=== PATIENT | female | born 1995 | race Caucasian/White ===

== ENCOUNTER 2018-12-24 17:33 | Outpatient (CLI) | payer OTHER ==
[~2018-12-24] VITALS: Ht 165.1 cm; Wt 78.6 kg
--- NOTE | 2018-12-24 17:25 | NUR ---
Patient ambulatory onto unit with at side with report of "stabbing back pain in my right side". Patient reports good movement, denies vaginal bleeding, leaking of fluid, or contractions. Denies any UTI symptoms or other complaints. EFMs on, VS taken. SVE /-2, unchanged from office exam. Assessment completed. Will notify for further orders.
[2018-12-24 17:40] VITALS: BP 125/89; PULSE 115; TEMP 99.3
[2018-12-24] MEDS ORDERED: PRENATAL VITAMI1 TA3 PO (17:40)
[2018-12-24] MEDS ORDERED: SINGULAIR 110 MG/TAB PO (17:40)
[2018-12-24 18:15] VITALS: BP 123/75; PULSE 98
--- NOTE | 2018-12-24 18:25 | NUR ---
Plan of care discussed with patient and . Questions answered. Patient ambulatory off of unit at this time with return precautions.
== END 2018-12-24 18:25 | disposition home or self-care (01) ==
LOC: LDRO 17:33 → LDR 18:19 → LDRO 18:20 → LDR 18:24
DX: O26.893 Other specified pregnancy related conditions, third trimester (principal); Z3A.38 38 weeks gestation of pregnancy; M54.9 Dorsalgia, unspecified
CPT/HCPCS: OP

== ENCOUNTER 2018-12-29 06:59 | Inpatient (IN) | payer OTHER ==
[2018-12-29] VITALS (36 sets, daily range): BP systolic 98–142; BP diastolic 55–91; PULSE 78–150; TEMP 97.6–98.9
[~2018-12-29] VITALS: Ht 165.1 cm; Wt 78.0 kg
[~2018-12-29 06:59] MED LIST: PRENATAL VITAMI1 TA3 PO; SINGULAIR 110 MG/TAB PO
--- NOTE | 2018-12-29 07:10 | NUR ---
Patient ambulatory to LR5, changed into gown, FHR/TOCO monitors placed and explained. Patient states she has been feeling some contractions, denies leaking of fluid or vaginal bleeding. Plan of care discussed. 0730: IV started in right upper arm per Kevin RN, blood obtained and to lab, and LR infusing. Assessment completed and consents gone over/ packet given. 0810: Dr. Mena at bedside and assessing patient/FHR strip. 0811: SVE-4/80/-1 and AROM with clear fluid noted. Plan of care discussed. 0850: Patient getting more uncomfortable and on birthing ball, FHR difficult to trace and this RN adjusting FHR monitor. 0928: Patient requests epidural and Jeannie LANCASTER called and updated. 0935: FHR monitor tracing maternal heart rate and patient off monitor to void. 0945: Patient sitting on edge of bed and Jeannie LANCASTER at bedside for placement of epidural. Patient becomes naueseated and vomitting. 0957: Test dose given and patient tolerates well Difficulty tracing FHR due to maternal position. 1000: Patient repositioned wedged left. 1020: FHR tracing recurrent variable/late declerations and patient repositioned. 1018: Blood pressure-95/52 and patient states feeling light headed. 1020: Ephedrine 10mg IV given and patient tolerates well. 1022: Recheck Blood pressure-109/66 and patient states feeling better. 1025: Carrillo placed and patient tolerates well. SVE-6/90/-1 and patient left lateral with peanut ball in place. 1125: Dr. Mnea at bedside and evaluating FHR strip. Orders to continue to increase pitcocin. SVE-//-1.
[2018-12-29 08:22] LABS: BASO % 0.3 % (0.0-2.0); EOS # 0.1 (0.0-0.7); EOS % 0.7 % (0-4.0); GRAN # 6.5 (1.4-6.5); GRAN % 74.3 % (42.2-75.2); HEMOGLOBIN 12.5 g/dl (12.5-16.0); LYMPH # 1.5 (1.2-3.4); LYMPH % 16.7 % (20.0-51.0); MEAN CELL VOLUME 89 fl (80.0-100.0); MEAN CORPUSCULAR HEMOGLOBIN 30 pg (27.0-31.0); MEAN CORPUSCULAR HGB CONC 34 g/dl (33.0-37.0); MEAN PLATELET VOLUME 12.5 fl (7.4-10.4); MONO # 0.6 (0.1-0.6); MONO % 7.1 % (1.7-9.3); PLATELET COUNT 142 K/mm3 (130-400); RED BLOOD COUNT 4.17 M/mm3 (4.10-5.30); REDCELL DISTRIBUTION WIDTH-CV 12.9 % (11.5-14.5)
--- NOTE | 2018-12-29 13:15 | NUR ---
Patient states she is having a lot of pressure. 1319: SVE-10/100/+1 1320: Carrillo catheter removed and patient tolerates well. Patient having the urge to push with each contraction. 1330: Patient begins pushing with contractions as needed. FHR tracing recurrent variable decelerations. 1340: Patient pulling legs back and pushing with each contraction with this RN assisting. 1350: Dr. Mena at bedside to assess patient and FHR strip. Patiet pushing with Dr. Mena and physician notes that is occiput posterior. Orders to continues pushing with this RN. FHR continues to have recurrent variable decelerations. 1410: Patient continues to push with Dr. Mena and physician discusses the possible need for vacuum assist delivery due to FHR increasing baseline. Patient agrees and is okay with plan if needed. FHR baseline continues to trace recurrent variable decelerations and returning to baseline of 175bpm. Bed taken apart and feet in [facility] and Dr. Mena discusses the need for vacuum at this time and patient agrees. 1434: Vacuum applied and traction applied with all three pushes during contraction. 1435: Pop off of vacuum at this time. 1435: Vacuum reapplied to head of infant and patient begins to push and traction with each push x3. 1437: Pop off of vacuum at this time. Patient pushes without vacuum applied. 1440: Dr. Mena cuts a RLE at this time and Dr. Mena updated that there has been a total of two popoffs. 1441: Vacuum applied and traction with each push x3. 1442: Pop off at this time. FHR continues to trace recurrent variable decelerations and increasing to 190-200bpm. Patient continues to push without vacuum applied. 1448: Delivery of head followed by body, infant to patients abdomen, Dr. Mena clamps and cuts cord of . taken to warmer and Sujatha Tirado RN, Rita RN, and Jeannie LANCASTER assume care of infant. Cord gases obtained and to Respiratory therapy. Cord blood obtained. 1453: Spontaneous delivery of placenta and pitocin bolus started per protocol. Dr. Mena repairs 2nd degree RLE laceration. Fundal massage done/bleeding WNL/firm Patient repositioned and ice pack to perineum. Plan of care discussed.
--- NOTE | 2018-12-29 17:00 | NUR ---
Patient sitting on edge of bed and epidural catheter removed at this time and patient tolerates well. Patient ambulates to bathroom and unable to void at this time, pericare done and new gown/pad/icepack/underwear on. Patient updated on plan of care and patient to nursery to see baby.
[2018-12-30 01:27] VITALS: BP 118/76; PULSE 90; TEMP 98
[2018-12-30 05:30] VITALS: BP 112/65; PULSE 89; TEMP 98.3
[2018-12-30 08:00] VITALS: BP 103/66; PULSE 105; TEMP 98.5
--- NOTE | 2018-12-30 09:52 | NUR ---
Initial visit; Parents thanked Cotton Jammer for offering congratulations and God's blessings for the of their son. Cotton Jammer thanked family for choosing [facility].
[2018-12-30] MEDS ORDERED: MOTRIN 800800 MG/TAB PO (11:38)
[2018-12-30 12:17] VITALS: BP 124/80; PULSE 104; TEMP 99
[2018-12-30 16:17] VITALS: BP 124/65; PULSE 76; TEMP 97.8
[2018-12-30 20:33] VITALS: BP 117/69; PULSE 93; TEMP 98.8
[2018-12-31 07:55] VITALS: BP 115/69; PULSE 84; TEMP 98.6
== END 2018-12-31 11:10 | disposition home or self-care (01) | DRG 807 ==
LOC: LDR 06:59 → OB 06:59
PROVIDERS: ADMIT Obstetrics & Gynecology
PROC: 10D07Z6 Extraction of Products of Conception, Vacuum, Via Natural or Artificial Opening (ICD-10-PCS; principal; 2018-12-29)
PROC: 0W8NXZZ Division of Female Perineum, External Approach (ICD-10-PCS; 2018-12-29)
PROC: 10907ZC Drainage of Amniotic Fluid, Therapeutic from Products of Conception, Via Natural or Artificial Opening (ICD-10-PCS; 2018-12-29)
DX: O99.344 Other mental disorders complicating childbirth (principal); Z37.0 Single live birth; Z3A.39 39 weeks gestation of pregnancy; F41.9 Anxiety disorder, unspecified; J45.909 Unspecified asthma, uncomplicated; O99.52 Diseases of the respiratory system complicating childbirth
CPT/HCPCS: J1200; J2590; J7120

== ENCOUNTER → 2019-01-17 | Outpatient (CLI) | payer OTHER ==
[~2019-01-17] MED LIST changes: +MOTRIN 800800 MG/TAB PO
--- NOTE | 2019-01-17 11:55 | NUR ---
Pt, Chika Salazar into walk-in clinic with 20 day old Josué for evaluation. Josué was born on [birth year] via vac. assisted vaginal delivery with a weight of 8#10 oz. Chika states Josué is strictly breast feeding and nurses 8 times per day, is having 6+ weight diapers per day, and 4+ yellow/seedy stools per day. Chika presents to clinic with concerns regarding occasional pain with latching and itching of the breasts during and after feedings. Today, Josué's prefeed weight was noted as 9# 1.8 oz (4134 gm). While in clinic, Josué nursed bilaterally with a gain of 4.85 oz (136 gm). LC assisted Chika with improving positioning and obtaining a deeper latch to decrease pain. LC noted possible tongue tie that could be causing some of the nipple pain; however, Josué was able to maintain a strong latch for 20+ min and did well transferring milk. LC advised Josué to discuss the tongue tie with band director to see if correction would be of benefit. LC did not note any signs of thrush that could possibly be causing the itching of the breasts. LC educated Chika of other s/sx of thrush to look out for. Also discussed trying washable breast pads in place of disposable pads and air drying nipples after feeding. Questions answered regarding pumping and begining to introduce bottle. POC: Continue to feed ad ted, offering both breasts per feeding, keeping good support of breast and baby. Start pumping and introducing bottle of 3-4 oz EBM a few times a week to prepare for returning to work. Discuss tongue with band director at one month appointment. Continue to watch for s/ sx of thrush. Return to clinic with further concerns as desired. Questions invited and answered. Understanding verbalized.
== END ==
LOC: LAC 10:21
DX: Z39.1 Encounter for care and examination of lactating mother (principal)

== ENCOUNTER → 2019-01-24 | Outpatient (CLI) | payer OTHER ==
--- NOTE | 2019-01-24 10:29 | NUR ---
Chika Salazar into walk in clinic with 3.5 week old Josué for weight check and to discuss on-going issues with breast and nipple pain and itching. Josué was born on [birth year] with a weight of 8#10 oz. Last week in clinic, Josué's prefeed weight was noted at 9#1.8 oz and his intake in clinic last week was 4.85 oz (136 gm), Today's Josué's prefeed weight was noted as 9 # 10.4 oz (4376 gm). While in clinic, Josué nursed bilaterally with a total gain of 4.2 oz. Chika states she continues to have pain with latch and shooting pain up her breasts between feedings. Chika states she is also experiencing itching of the breasts and nipples and states the itching feels internal. No sores or abnormalities of the nipple noted. LC notes infant does have a tongue tie that could be one explaination for niple pain with latch. No white patches noted in infants tongue or mouth. Written and verbal education provided on thrush and nipple pain. POC: Follow up with Dr. Mena regarding internal itching and nipple/breast pain to r/o thrush. Continue to feed ad ted. Watch for further s/sx of thrush. Return to clinic with further concerns.
== END ==
LOC: LAC 09:59
DX: Z39.1 Encounter for care and examination of lactating mother (principal); Z71.89 Other specified counseling

== ENCOUNTER → 2019-02-28 | Outpatient (CLI) | payer OTHER ==
--- NOTE | 2019-02-28 13:00 | NUR ---
Pt, Chika Marie, presents to walk-in clinic with 2 month old baby boy, Josué Salazar because of ongoing nipple pain. Josué was born on [birth year] and weighed 8#10oz (3912 oz). They were at clinic on 01/24/19 and Josué weighed 9#10.4oz (4376 gms). Today his weight is 11#8.7oz. for a gain of about one pound in the last month. LC notes Josué has a sublingual tongue tie, pt has elected not to have it evaluated by dentist at this time. Josué breastfeeds 6 times daily, usually only on one side, has qs voids and stools. Pt reports she has had treatment for thrush but continues to have breast and nipple pain after feedings. Discussed s/sx of Raynaud's Phenomenon and management of the sx with heat after . After on the left side Josué has a gain of 3.8oz. He is placed to the right breast and has an additional gain of 1.7oz, for a total of 5.5oz gain. Pt advised to start offering both breasts at each feeding. POC: Offer both breasts each feeding. Follow managment instructions for Raynaud's Phenomenon. F/U: Pt returns to work next week, will have well baby checks as scheduled with Dr. Tripathi, and contact this LC by phone or email as needed with breast pain. Questions invited and answered.
== END ==
LOC: LDRO 11:52
DX: Z39.1 Encounter for care and examination of lactating mother (principal)

== ENCOUNTER → 2019-07-05 | Outpatient (CLI) | payer OTHER | LOC: MC.RAD 11:09 | DX: Z39.1 Encounter for care and examination of lactating mother (principal); N64.52 Nipple discharge; N64.59 Other signs and symptoms in breast ==

== ENCOUNTER 2020-10-08 08:53 | Outpatient (CLI) | payer OTHER ==
[~2020-10-08] VITALS: Ht 165.1 cm; Wt 75.5 kg
--- NOTE | 2020-10-08 09:05 | NUR ---
904- Pt arrives on unit and is oriented to room. Provided a clean gown to put on. 908- FHR monitor and TOCO connected to pt. VS assessed. Pt denies LOF, VB, or feeling contractions. Consent explained and signed. Assessment completed. 954- IV started in and saline locked per protocol.
[2020-10-08 09:30] VITALS: BP 119/78; PULSE 90; TEMP 98.1
[2020-10-08] MEDS ORDERED: PROAIR HFA0.09 MG/AC IH (09:34)
[2020-10-08 10:00] VITALS: PULSE 94
--- NOTE | 2020-10-08 10:00 | NUR ---
1000- Dr. Mena on unit. In to see pt. Reviews care plan with pt. Reviews FHR monitor and gives order to give 0.[address] Tabares to room to assist Dr. Mena with ECV. 1005- Bedside sono per Dr. Mena. EFM off. 1006- Dr. Mena and Dr. Tabares begin ECV. 1008- Dr. Mena places sono on abdomen to check progress of ECV. Begins further external maneuvers. 1010- RN places EFM on abdomen to check FHR. Dr. Mena confirms vertex presentation accomplished. Pt remains on EFM per protocol. 1033- Dr. Mena at pt bedside. Performs bedside sono prior to exiting unit. Confirms vertex presentation. Reviews EFM and gives this RN orders to give water and continue to monitor for 1 hour per protocol.
[2020-10-08 10:30] VITALS: BP 131/84; PULSE 99
[2020-10-08 10:45] VITALS: PULSE 101
[2020-10-08 11:00] VITALS: PULSE 108
[2020-10-08 11:12] VITALS: PULSE 110
--- NOTE | 2020-10-08 11:12 | NUR ---
1112- Pt disconnected from FHR monitor and TOCO. Given discharge instructions. Questions answered. Pt verbalizes understanding. 1120- Pt ambulatory off unit with spouse.
== END 2020-10-08 11:20 | disposition home or self-care (01) ==
LOC: LDRO 08:53
DX: O32.1XX0 Maternal care for breech presentation, not applicable or unspecified (principal); Z3A.37 37 weeks gestation of pregnancy
CPT/HCPCS: J3105

== ENCOUNTER 2020-10-17 06:25 | Inpatient (IN) | payer OTHER ==
[2020-10-17] VITALS (35 sets, daily range): BP systolic 108–137; BP diastolic 52–93; PULSE 59–137; TEMP 97.6–98.3
[~2020-10-17] VITALS: Ht 165.1 cm; Wt 75.0 kg
[~2020-10-17 06:25] MED LIST changes: +PROAIR HFA0.09 MG/AC IH
--- NOTE | 2020-10-17 06:40 | NUR ---
Patient ambulates to LR6 with spouse, changed into gown, FHR/TOCO monitors placed and explained. Patient here for scheduled induction. Patient denies any regular contractions/leaking of fluid/vaginal bleeding/decreased movement. Plan of care discussed and questions answered. 0700: IV started in left wrist, blood obtained and to lab, LR infusing. Assessment completed, consents discussed and signed, packet given. 0717: Pitocin induction discussed and patient agrees with plan. Pitocin started at 2mU/hr at this time per protocol. 0745: Dr. Mena at bedside and assessing patient and FHR strip. Plan of care discussed. 0747: SVE done by physician-/-2 and AROM at this time with clear fluid noted. Dr. Mena orders that patient can get epidural when she wants and to continue to increase pitocin.
[2020-10-17] MEDS ORDERED: ACTIGALL 300MG300 MG PO (07:09)
[2020-10-17] MEDS ORDERED: AMOXICILLIN 50500 MG PO (07:09)
[2020-10-17] MEDS ORDERED: PRENATAL TABLET (07:10)
[2020-10-17 07:42] LABS: BASO % 0.5 % (0.0-2.0); EOS % 0.3 % (0-4.0); GRAN # 3.4 (1.4-6.5); GRAN % 58.4 % (42.2-75.2); HEMATOCRIT 35.6 % (37.0-47.0); HEMOGLOBIN 11.7 g/dl (12.5-16.0); LYMPH # 1.9 (1.2-3.4); LYMPH % 32.8 % (20.0-51.0); MEAN CELL VOLUME 84 fl (80.0-100.0); MEAN CORPUSCULAR HEMOGLOBIN 28 pg (27.0-31.0); MEAN CORPUSCULAR HGB CONC 33 g/dl (33.0-37.0); MEAN PLATELET VOLUME 13.7 fl (7.4-10.4); MONO # 0.4 (0.1-0.6); PLATELET COUNT 207 K/mm3 (130-400); RED BLOOD COUNT 4.23 M/mm3 (4.10-5.30); REDCELL DISTRIBUTION WIDTH-CV 12.7 % (11.5-14.5)
--- NOTE | 2020-10-17 08:40 | NUR ---
Patient requesting epidural and Estelita Sanchez GENETIC COUNSELOR notified. 0905: Patient sitting up for placement of epidural and Estelita Sanchez GENETIC COUNSELOR at bedside. 0910: Single shot given and patient tolerates well. 0915: Patient repositioned and safety precautions/plan of care discussed. 1030: Carrillo catheter placed per Tarah MOMIN and patient tolerates well. 1040: SVE-5/80/-2 and patient right lateral and left leg resting in stirrup. 1120: Dr. Mena at bedside and assessing patient and FHR strip. SVE per physician 5/80/0. 1320: SVE-9-10/100/0 and patient sitting in upright position. 1340: SVE-complete. 1350: Carrillo catheter removed and patient tolerates well.
--- NOTE | 2020-10-17 13:55 | NUR ---
1355: Dr. Mena at bedside and patient set up for vaginal delivery. Bed apart and feet in stirrups. Pericare done. 1400: Patient begins pushing with contractions at this time. 1405: Spontaneous vaginal delivery of viable female- head followed by body, to patients abdomen and bulb syringed. Cord clamped and cut by physician. Aby MOMIN assumes care of . Cord blood obtained. 1407: Spontaneous delivery of placenta and pitocin bolus started at 333mU/hr per protocol. Fundal massage done/firm/bleeding WNL Dr. Mena repairs laceration. Patient repositioned and pad to perineum. Plan of care discussed.
--- NOTE | 2020-10-17 16:40 | NUR ---
Patient sitting on edge of bed and epidural catheter removed, patient tolerates well. Patient ambulates to bathroom with standby assist, unable to void. Pericare done, new clothes/underwear/pad on. Patient to new room and oriented to . Whiteboard discussed.
[2020-10-17] MEDS ORDERED: MOTRIN 800800 MG/TAB PO (19:37)
[2020-10-18 00:30] VITALS: BP 119/88; PULSE 78; TEMP 97.8
[2020-10-18 04:15] VITALS: BP 116/76; PULSE 58; TEMP 97.6
[2020-10-18 08:05] VITALS: BP 122/86; PULSE 68; TEMP 98.2
[2020-10-18 08:53] LABS: ALANINE AMINOTRANSFERASE 143 U/L (4-34); ALBUMIN 2.9 gm/dL (3.5-5.0); ALKALINE PHOSPHATASE 204 U/L (50-136); ANION GAP 4 mmol/L (7-16); AST,SGOT 114 U/L (15-37); BILIRUBIN,TOTAL < 0.1 mg/dL (0.0-1.0); BLOOD UREA NITROGEN 7 mg/dL (7-17); CALCIUM 8.3 mg/dL (8.4-10.2); CARBON DIOXIDE 25 mmol/L (22-30); CHLORIDE 106 mmol/L (98-107); CREATININE, serum 0.66 (0.52-1.25); GLUCOSE 81 mg/dL (74-106); POTASSIUM 4.3 mmol/L (3.4-5.0); SODIUM 134 mmol/L (137-145); TOTAL PROTEIN 6.2 gm/dL (6.4-8.2)
== END 2020-10-18 16:02 | disposition home or self-care (01) | DRG 805 ==
LOC: OB 06:25 → LDR 06:25 → OB 07:44
PROVIDERS: Student in an Organized Health Care Education/Training Program; ADMIT Obstetrics & Gynecology
PROC: 10E0XZZ Delivery of Products of Conception, External Approach (ICD-10-PCS; principal; 2020-10-17)
PROC: 0HQ9XZZ Repair Perineum Skin, External Approach (ICD-10-PCS; 2020-10-17)
PROC: 10907ZC Drainage of Amniotic Fluid, Therapeutic from Products of Conception, Via Natural or Artificial Opening (ICD-10-PCS; 2020-10-17)
PROC: 3E033VJ Introduction of Other Hormone into Peripheral Vein, Percutaneous Approach (ICD-10-PCS; 2020-10-17)
DX: O26.62 Liver and biliary tract disorders in childbirth (principal); K83.1 Obstruction of bile duct; Z37.0 Single live birth; O99.344 Other mental disorders complicating childbirth; F41.9 Anxiety disorder, unspecified; O69.81X0 Labor and delivery complicated by cord around neck, without compression, not applicable or unspecified; O70.0 First degree perineal laceration during delivery; Z3A.38 38 weeks gestation of pregnancy
CPT/HCPCS: J1200; J2590; J2795; J7120